=== PATIENT | male | born 1950 | race Caucasian/White ===

== ENCOUNTER 2022-04-19 17:59 | Emergency (ER) | payer OTHER ==
[~2022-04-19] VITALS: Ht 190.5 cm; Wt 122.5 kg
[2022-04-19 18:35] LABS: BASOPHILS ABSOLUTE AUTO 0.08 K/mm3 (0.00-0.23); BASOPHILS PERCENT AUTO 1 % (0-2); EOSINOPHILS ABSOLUTE AUTO 0.33 K/mm3 (0.00-0.68); EOSINOPHILS PERCENT AUTO 4 % (0-6); Hematocrit 43.8 % (37.0-53.0); Hemoglobin 14.9 g/dL (13.5-17.5); IMMATURE GRAN ABSOLUTE AUTO 0.05 K/mm3 (0.00-0.10); IMMATURE GRAN PERCENT AUTO 1 % (0-1); LYMPHOCYTES ABSOLUTE AUTO 1.23 K/mm3 (0.84-5.20); LYMPHOCYTES PERCENT AUTO 15 % (21-46); MONOCYTES ABSOLUTE AUTO 0.67 K/mm3 (0.16-1.47); MONOCYTES PERCENT AUTO 8 % (4-13); Mean Corpuscular HGB 27.5 pg (26.0-34.0); Mean Corpuscular Volume 81 fL (80-100); Mean Platelet Volume 9.2 fL (9.1-12.4); NEUTROPHILS ABSOLUTE AUTO 5.82 K/mm3 (1.96-9.15); NEUTROPHILS PERCENT AUTO 71 % (41-73); Platelet Count 136 K/mm3 (150-400); RDW Coefficient Variation 17.7 % (11.7-14.2); RDW Standard Deviation 51.4 fL (35.1-46.3); Red Blood Cell Count 5.42 M/mm3 (4.30-5.90); White Blood Cell Count 8.18 K/mm3 (4.00-11.30)
[2022-04-19 18:52] LABS: Albumin/Globulin Ratio 1.1 (0.8-1.8); Bilirubin, Total 0.4 mg/dL (0.1-1.0); Bun/Creatinine Ratio 18.7 (12.0-20.0); Calcium, Blood 9.8 mg/dL (8.5-10.1); Creatinine, Blood 2.25 mg/dL (0.60-1.20); Globulin, Blood 3.5 g/dL (2.2-4.0); Potassium, Blood 4.5 mmol/L (3.5-5.5); Total Protein, Blood 7.5 g/dL (6.4-8.2)
[2022-04-19] MEDS ORDERED: Norco 5-325 Ta1 EACH PO (22:13)
== END 2022-04-19 22:26 | disposition home or self-care (01) ==
LOC: ER 17:59
PROVIDERS: Emergency Medicine
DX: R07.9 Chest pain, unspecified (principal); I50.9 Heart failure, unspecified; Z95.0 Presence of cardiac pacemaker; Z88.0 Allergy status to penicillin; Z88.1 Allergy status to other antibiotic agents; Z88.7 Allergy status to serum and vaccine
CPT/HCPCS: 71045; 80053; 83880; 84484; 85025; 93005; 93010; A9270; J2270; J2405

== ENCOUNTER 2023-05-20 21:19 | Emergency (ER) | payer OTHER ==
[~2023-05-20] VITALS: Ht 190.5 cm; Wt 104.3 kg
[~2023-05-20 21:19] MED LIST: Norco 5-325 Ta1 EACH PO
[2023-05-20 21:42] LABS: BASOPHILS ABSOLUTE AUTO 0.08 K/mm3 (0.00-0.23); BASOPHILS PERCENT AUTO 1 % (0-2); EOSINOPHILS ABSOLUTE AUTO 0.27 K/mm3 (0.00-0.68); EOSINOPHILS PERCENT AUTO 3 % (0-6); Hematocrit 37.8 % (37.0-53.0); Hemoglobin 12.4 g/dL (13.5-17.5); IMMATURE GRAN ABSOLUTE AUTO 0.04 K/mm3 (0.00-0.10); IMMATURE GRAN PERCENT AUTO 1 % (0-1); LYMPHOCYTES ABSOLUTE AUTO 1.31 K/mm3 (0.84-5.20); LYMPHOCYTES PERCENT AUTO 17 % (21-46); MONOCYTES PERCENT AUTO 6 % (4-13); Mean Corpuscular HGB 27.9 pg (26.0-34.0); Mean Corpuscular HGB Conc 32.8 g/dL (31.5-36.5); Mean Corpuscular Volume 85 fL (80-100); Mean Platelet Volume 9.9 fL (9.1-12.4); NEUTROPHILS ABSOLUTE AUTO 5.65 K/mm3 (1.96-9.15); NEUTROPHILS PERCENT AUTO 72 % (41-73); Platelet Count 158 K/mm3 (150-400); RDW Coefficient Variation 16.9 % (11.7-14.2); RDW Standard Deviation 51.5 fL (35.1-46.3); Red Blood Cell Count 4.44 M/mm3 (4.30-5.90); White Blood Cell Count 7.85 K/mm3 (4.00-11.30)
[2023-05-20 21:54] LABS: Albumin, Blood 3.7 g/dL (3.4-5.0); Bilirubin, Total 0.7 mg/dL (0.1-1.0); Bun/Creatinine Ratio 19.2 (12.0-20.0); Calcium, Blood 9.5 mg/dL (8.5-10.1); Creatinine, Blood 2.39 mg/dL (0.60-1.20); Globulin, Blood 3.7 g/dL (2.2-4.0); Potassium, Blood 4.4 mmol/L (3.5-5.5); Total Protein, Blood 7.4 g/dL (6.4-8.2)
[2023-05-20 23:38] LABS: Magnesium, Blood 2.3 mg/dL (1.6-2.4); Phosphorus, Blood 2.4 mg/dL (2.5-4.9); Thyroid Stimulating Hormone 7.63 uIU/mL (0.360-4.800)
[2023-05-21 01:00] VITALS: BP 136/96
[2023-05-21] MEDS ORDERED: Percocet 5-3251 EACH PO (01:02)
[2023-05-22] MEDS ORDERED: AMIODARONE HCL200 MG PO (12:00)
[2023-05-22] MEDS ORDERED: METO25ER PO (12:01)
[2023-05-22] MEDS ORDERED: ELIQUIS5 M2 PO (12:01)
[2023-05-22] MEDS ORDERED: TORS10 PO (12:01)
[2023-05-22] MEDS ORDERED: ALLO300 PO (12:01)
[2023-05-22] MEDS ORDERED: GABA300 PO (12:02)
[2023-05-22] MEDS ORDERED: Aspirin325 MG PO (12:02)
[2023-05-22] MEDS ORDERED: FOTIVDA PO (12:02)
[2023-05-22] MEDS ORDERED: AMIT25 PO (12:02)
[2023-05-22] MEDS ORDERED: ATOR20 PO (12:02)
== END 2023-05-21 01:25 | disposition home or self-care (01) ==
LOC: ER 21:19
PROVIDERS: Physician Assistant
DX: R07.9 Chest pain, unspecified (principal); I50.9 Heart failure, unspecified; C64.9 Malignant neoplasm of unspecified kidney, except renal pelvis; Z95.0 Presence of cardiac pacemaker; Z88.0 Allergy status to penicillin; Z88.1 Allergy status to other antibiotic agents; Z88.7 Allergy status to serum and vaccine
CPT/HCPCS: 71046; 80053; 83735; 84100; 84443; 84484; 85025; 93005; 93010; 99285-25; A9270; J3370; J7050

== ENCOUNTER 2023-05-22 09:50 | Emergency (ER) | payer OTHER ==
[~2023-05-22] VITALS: Ht 190.5 cm; Wt 104.3 kg
[~2023-05-22 09:50] MED LIST changes: +Percocet 5-3251 EACH PO
[2023-05-22] MEDS ORDERED: Acetaminophen 500 MG Tab PO ONE (10:15)
[2023-05-22 11:04] LABS: BASOPHILS ABSOLUTE AUTO 0.05 K/mm3 (0.00-0.23); BASOPHILS PERCENT AUTO 1 % (0-2); EOSINOPHILS ABSOLUTE AUTO 0.28 K/mm3 (0.00-0.68); EOSINOPHILS PERCENT AUTO 5 % (0-6); Hematocrit 35.3 % (37.0-53.0); Hemoglobin 11.9 g/dL (13.5-17.5); IMMATURE GRAN ABSOLUTE AUTO 0.03 K/mm3 (0.00-0.10); IMMATURE GRAN PERCENT AUTO 1 % (0-1); LYMPHOCYTES ABSOLUTE AUTO 0.82 K/mm3 (0.84-5.20); LYMPHOCYTES PERCENT AUTO 14 % (21-46); MONOCYTES ABSOLUTE AUTO 0.36 K/mm3 (0.16-1.47); MONOCYTES PERCENT AUTO 6 % (4-13); Mean Corpuscular HGB 28.2 pg (26.0-34.0); Mean Corpuscular HGB Conc 33.7 g/dL (31.5-36.5); Mean Corpuscular Volume 84 fL (80-100); Mean Platelet Volume 10.9 fL (9.1-12.4); NEUTROPHILS ABSOLUTE AUTO 4.15 K/mm3 (1.96-9.15); NEUTROPHILS PERCENT AUTO 73 % (41-73); Platelet Count 121 K/mm3 (150-400); RDW Coefficient Variation 16.7 % (11.7-14.2); RDW Standard Deviation 50.9 fL (35.1-46.3); Red Blood Cell Count 4.22 M/mm3 (4.30-5.90); White Blood Cell Count 5.69 K/mm3 (4.00-11.30)
[2023-05-22 11:14] LABS: Albumin, Blood 3.3 g/dL (3.4-5.0); Albumin/Globulin Ratio 0.9 (0.8-1.8); Bilirubin, Total 0.8 mg/dL (0.1-1.0); Bun/Creatinine Ratio 17.8 (12.0-20.0); Calcium, Blood 9.2 mg/dL (8.5-10.1); Creatinine, Blood 2.19 mg/dL (0.60-1.20); Globulin, Blood 3.5 g/dL (2.2-4.0); Potassium, Blood 4.2 mmol/L (3.5-5.5); Total Protein, Blood 6.8 g/dL (6.4-8.2)
[2023-05-22 11:45] VITALS: BP 107/67
[2023-05-22] MEDS ORDERED: AMIODARONE HCL200 MG PO (12:00)
[2023-05-22] MEDS ORDERED: ALLO300 PO (12:01)
[2023-05-22] MEDS ORDERED: TORS10 PO (12:01)
[2023-05-22] MEDS ORDERED: ELIQUIS5 M2 PO (12:01)
[2023-05-22] MEDS ORDERED: METO25ER PO (12:01)
[2023-05-22] MEDS ORDERED: AMIT25 PO (12:02)
[2023-05-22] MEDS ORDERED: ATOR20 PO (12:02)
[2023-05-22] MEDS ORDERED: FOTIVDA PO (12:02)
[2023-05-22] MEDS ORDERED: GABA300 PO (12:02)
[2023-05-22] MEDS ORDERED: Aspirin325 MG PO (12:02)
== END 2023-05-22 12:05 | disposition home or self-care (01) ==
LOC: ER 09:50
PROVIDERS: Emergency Medicine
DX: S00.03XA Contusion of scalp, initial encounter (principal); N18.9 Chronic kidney disease, unspecified; I50.9 Heart failure, unspecified; Z88.0 Allergy status to penicillin; Z88.1 Allergy status to other antibiotic agents; Z88.7 Allergy status to serum and vaccine; X50.1XXA Overexertion from prolonged static or awkward postures, initial encounter
CPT/HCPCS: 70450; 80053; 85025; 99284-25; A9270

== ENCOUNTER → 2023-05-29 | Outpatient (CLI) | payer OTHER ==
[~2023-05-29] MED LIST changes: +ALLO300 PO; +AMIODARONE HCL200 MG PO; +AMIT25 PO; +ATOR20 PO; +Aspirin325 MG PO; +ELIQUIS5 M2 PO; +FOTIVDA PO; +GABA300 PO; +METO25ER PO; +TORS10 PO
[2023-05-29 08:32] LABS: BASOPHILS ABSOLUTE AUTO 0.07 K/mm3 (0.00-0.23); BASOPHILS PERCENT AUTO 1 % (0-2); EOSINOPHILS ABSOLUTE AUTO 0.36 K/mm3 (0.00-0.68); EOSINOPHILS PERCENT AUTO 4 % (0-6); Hemoglobin 13.1 g/dL (13.5-17.5); IMMATURE GRAN ABSOLUTE AUTO 0.03 K/mm3 (0.00-0.10); IMMATURE GRAN PERCENT AUTO 0 % (0-1); LYMPHOCYTES ABSOLUTE AUTO 1.49 K/mm3 (0.84-5.20); LYMPHOCYTES PERCENT AUTO 18 % (21-46); MONOCYTES ABSOLUTE AUTO 0.56 K/mm3 (0.16-1.47); MONOCYTES PERCENT AUTO 7 % (4-13); Mean Corpuscular HGB Conc 33.6 g/dL (31.5-36.5); Mean Corpuscular Volume 83 fL (80-100); Mean Platelet Volume 10.1 fL (9.1-12.4); NEUTROPHILS ABSOLUTE AUTO 5.62 K/mm3 (1.96-9.15); NEUTROPHILS PERCENT AUTO 69 % (41-73); Platelet Count 167 K/mm3 (150-400); RDW Coefficient Variation 16.8 % (11.7-14.2); RDW Standard Deviation 50.4 fL (35.1-46.3); Red Blood Cell Count 4.68 M/mm3 (4.30-5.90); White Blood Cell Count 8.13 K/mm3 (4.00-11.30)
[2023-05-29 08:43] LABS: Albumin, Blood 3.5 g/dL (3.4-5.0); Albumin/Globulin Ratio 0.9 (0.8-1.8); Bilirubin, Total 0.5 mg/dL (0.1-1.0); Bun/Creatinine Ratio 11.9 (12.0-20.0); Calcium, Blood 9.5 mg/dL (8.5-10.1); Creatinine, Blood 2.7 mg/dL (0.60-1.20); Globulin, Blood 3.8 g/dL (2.2-4.0); Potassium, Blood 4.2 mmol/L (3.5-5.5); Total Protein, Blood 7.3 g/dL (6.4-8.2)
== END ==
LOC: LAB SHORT 08:26 → LAB 08:26
PROVIDERS: Chiropractor
DX: R06.09 Other forms of dyspnea (principal)
CPT/HCPCS: 80053; 83880; 84484; 85025; 85379

== ENCOUNTER 2023-08-17 12:18 | Inpatient (IN) | payer OTHER ==
[~2023-08-17] VITALS: Ht 190.5 cm; Wt 94.6 kg
[2023-08-17 13:24] LABS: BASOPHILS ABSOLUTE AUTO 0.05 K/mm3 (0.00-0.23); BASOPHILS PERCENT AUTO 1 % (0-2); EOSINOPHILS ABSOLUTE AUTO 0.55 K/mm3 (0.00-0.68); EOSINOPHILS PERCENT AUTO 5 % (0-6); Hematocrit 29.8 % (37.0-53.0); Hemoglobin 9.6 g/dL (13.5-17.5); IMMATURE GRAN ABSOLUTE AUTO 0.05 K/mm3 (0.00-0.10); IMMATURE GRAN PERCENT AUTO 1 % (0-1); LYMPHOCYTES ABSOLUTE AUTO 0.63 K/mm3 (0.84-5.20); LYMPHOCYTES PERCENT AUTO 6 % (21-46); MONOCYTES ABSOLUTE AUTO 0.45 K/mm3 (0.16-1.47); MONOCYTES PERCENT AUTO 4 % (4-13); Mean Corpuscular HGB 26.7 pg (26.0-34.0); Mean Corpuscular HGB Conc 32.2 g/dL (31.5-36.5); Mean Corpuscular Volume 83 fL (80-100); Mean Platelet Volume 10.3 fL (9.1-12.4); NEUTROPHILS ABSOLUTE AUTO 8.68 K/mm3 (1.96-9.15); NEUTROPHILS PERCENT AUTO 83 % (41-73); Platelet Count 153 K/mm3 (150-400); RDW Coefficient Variation 17.6 % (11.7-14.2); RDW Standard Deviation 52.7 fL (35.1-46.3); White Blood Cell Count 10.41 K/mm3 (4.00-11.30)
[2023-08-17 13:26] LABS: Albumin, Blood 2.3 g/dL (3.4-5.0); Albumin/Globulin Ratio 0.7 (0.8-1.8); Bilirubin, Total 0.5 mg/dL (0.1-1.0); Bun/Creatinine Ratio 14.9 (12.0-20.0); Calcium, Blood 8.7 mg/dL (8.5-10.1); Creatinine, Blood 2.02 mg/dL (0.60-1.20); Globulin, Blood 3.4 g/dL (2.2-4.0); Potassium, Blood 3.8 mmol/L (3.5-5.5); Total Protein, Blood 5.7 g/dL (6.4-8.2)
[2023-08-17] MEDS ORDERED: [UNRECOGNIZED DRUG - OTHER] PO ×2 (14:19→19:59)
[2023-08-17] MEDS ORDERED: OXYCODONE-ACET1 EAC3 PO (14:19)
[2023-08-17] MEDS ORDERED: TESTOSTERONE60 GM (14:21)
[2023-08-17] MEDS ORDERED: NS 1,000 ML IV SCH ×3 (14:25→16:15)
[2023-08-17] MEDS ORDERED: FentaNYL Citrate 50 MCG/ML 2 ML Injection IV PRN (15:30)
[2023-08-17] MEDS ORDERED: Ondansetron HCl 2 MG / ML 2ML Vial IV ONE (15:30)
[2023-08-17] MEDS ORDERED: CefTRIAXone Sodium 1,000 MG in NS 100 ML IV ONE (16:15)
[2023-08-17] MEDS ORDERED: NS 1,000 ML IV ONE (16:16)
[2023-08-17] MEDS ORDERED: Azithromycin 250 MG Tab PO ONE (16:20)
[2023-08-17] MEDS ORDERED: Ondansetron 4 MG TAB PO PRN (16:35)
[2023-08-17] MEDS ORDERED: Acetaminophen 325 MG TABLET PO PRN (16:35)
[2023-08-17 16:45] LABS: Source, Urine Straight Cath
[2023-08-17 17:01] LABS: Appearance, Urine Clear (Clear); Bilirubin, Urine Neg (Neg); Blood, Urine Neg (Neg); Color, Urine Yellow (P-Yellow); Glucose Qualitative, Urine Neg (Neg); Ketones, Urine Neg (Neg); Leukocyte Esterase, Urine Neg (Neg); Nitrite, Urine Neg (Neg); Protein, Urine 1+ (Neg); Specific Gravity, Urine 1.015 (1.003-1.022); Urobilinogen, Urine NORM (Normal)
--- NOTE | 2023-08-17 18:57 | NUR ---
call to er at 1809, CALL BACK FROM [facility] CALLAHAN IN ER AT 1824 FOR RN TO RN REPORT.
[2023-08-17 19:21] VITALS: BP 110/73
[2023-08-17] MEDS ORDERED: ATOR20 PO (20:00)
[2023-08-17] MEDS ORDERED: Gabapentin 300 MG Cap PO SCH (21:35)
[2023-08-17] MEDS ORDERED: Metoprolol Succinate 50 MG TABCR PO SCH (21:35)
[2023-08-17] MEDS ORDERED: NS 250 ML IV PRN (23:10)
[2023-08-18 04:42] VITALS: BP 103/54
[2023-08-18 05:31] LABS: BASOPHILS ABSOLUTE AUTO 0.03 K/mm3 (0.00-0.23); BASOPHILS PERCENT AUTO 0 % (0-2); EOSINOPHILS ABSOLUTE AUTO 0.37 K/mm3 (0.00-0.68); EOSINOPHILS PERCENT AUTO 5 % (0-6); Hematocrit 26.6 % (37.0-53.0); Hemoglobin 8.6 g/dL (13.5-17.5); IMMATURE GRAN ABSOLUTE AUTO 0.03 K/mm3 (0.00-0.10); IMMATURE GRAN PERCENT AUTO 0 % (0-1); LYMPHOCYTES ABSOLUTE AUTO 0.48 K/mm3 (0.84-5.20); LYMPHOCYTES PERCENT AUTO 6 % (21-46); MONOCYTES ABSOLUTE AUTO 0.37 K/mm3 (0.16-1.47); MONOCYTES PERCENT AUTO 5 % (4-13); Mean Corpuscular HGB 26.8 pg (26.0-34.0); Mean Corpuscular HGB Conc 32.3 g/dL (31.5-36.5); Mean Corpuscular Volume 83 fL (80-100); Mean Platelet Volume 10.2 fL (9.1-12.4); NEUTROPHILS PERCENT AUTO 83 % (41-73); Platelet Count 113 K/mm3 (150-400); RDW Standard Deviation 54.4 fL (35.1-46.3); Red Blood Cell Count 3.21 M/mm3 (4.30-5.90); White Blood Cell Count 7.58 K/mm3 (4.00-11.30)
[2023-08-18 05:53] LABS: Albumin/Globulin Ratio 0.7 (0.8-1.8); Bilirubin, Total 0.6 mg/dL (0.1-1.0); Bun/Creatinine Ratio 15.5 (12.0-20.0); Calcium, Blood 8.4 mg/dL (8.5-10.1); Creatinine, Blood 1.81 mg/dL (0.60-1.20); Magnesium, Blood 1.4 mg/dL (1.6-2.4); Potassium, Blood 3.5 mmol/L (3.5-5.5)
[2023-08-18] MEDS ORDERED: OxyCODONE 5 mg/Acetamin 325 mg TABLET PO PRN (06:00)
--- NOTE | 2023-08-18 07:25 | NUR ---
Shift Summary Pt arrived from the ED with a dx of generalized weakness. He is AOx4 with a painful R hip. He is able to pivot to the BSC with one person assisting, weakness and R hip pain are his limiting factors. He rcved one 5-325 percocet per emar this morning which is part of his home medicaitons. Pt has a pace maker. He was on 2L O2 via NC t/o the night which is his BL, he has a CPAP in the room but did not want to wear the BIOX because the tape irritates his skin. Pt has a port in his R chest which is accessed, it is running NS @ [facility].
[2023-08-18 07:37] VITALS: BP 87/51
[2023-08-18 08:52] VITALS: BP 94/53
[2023-08-18] MEDS ORDERED: Enoxaparin 40 MG/0.4 ML SYR SC SCH (09:00)
[2023-08-18] MEDS ORDERED: Magnesium Sulf 2 GM/Water 50ML 50 ML IV ONE (09:00)
[2023-08-18] MEDS ORDERED: ONDA4ODT MM (11:32)
[2023-08-18] MEDS ORDERED: EUTHYROX50 MCG PO (11:34)
[2023-08-18] MEDS ORDERED: OZEMPIC1 MG/0.72 SC (11:34)
[2023-08-18] MEDS ORDERED: Medihoney Topical 44 ML TOP SCH (12:25)
--- NOTE | 2023-08-18 13:00 | NUR ---
PATIENT NOTED TO HAVE PINK FLAT RASH IN GROIN, AND STAGE 2 PRESSURE ULCER OPEN TO RIGHT BUTTOCK. PICS IN CHART. DR PELAYO NOTIFIED ORDERES RECIEVED FOR WOUND/RASH CARE.
--- NOTE | 2023-08-18 15:41 | NUR ---
Spiritual Care Visit. Pt. is awake in bed and welcomes my visit. Pt. is pleasant but displays evidence of being mildly [place]. Facilitated a life review, and Pt. verbalized his powerful personal redemption story. Matters of shobha and belief are considered at length. Prayed with Pt. After prayer even more life story is shared. Pt. displayed evidence of great shobha and hope in spite of a very troublesome prognosis. Pt. 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
[2023-08-18 15:44] VITALS: BP 96/57
--- NOTE | 2023-08-18 19:31 | NUR ---
SHIFT SUMMARY PATIENT HAS REFUSED TO GET UP IN WRITERS PRESENCE TODAY, HE STATES HE GETS ON COMMODE TO VOID AND REFUSED SEVERAL TIMES TODAY. BLADDER SCAN THIS EVENING REVEALED 1100ML URINE. PATIENT THEN AGREABLE TO GET UP TO COMMODE, HE HAD 100ML OUT. CALL TO DR PELAYO WHO ORDERED STRAIGHT CATH AND MAY INSERT CARNEY IF HE CONTINUES TO HAVE POST VOID RESIDUALS OF GREATER THAN 400. BED IN LOW POSITION, CALL LIGHT IN REACH. BED ALARM ON. PATIENT MEDICATED FOR PAIN AND DRESSING TO BUTTOCK PLACED TODAY AFTER CLEANSING.
[2023-08-18 19:43] VITALS: BP 97/57
[2023-08-18] MEDS ORDERED: Miconazole Nitrate 2% 85 GM PWD TOP SCH (21:00)
[2023-08-19 04:13] VITALS: BP 93/63
[2023-08-19 07:21] VITALS: BP 109/75
[2023-08-19] MEDS ORDERED: HyDROXyzine HCl 25 MG Tab PO PRN (10:10)
--- NOTE | 2023-08-19 15:15 | NUR ---
GOALS OF CARE DISCUSSION Met with Pt, 2 sisters, niece and provider in pt's room. Pt is A/O x3, able to make needs known. Reviewed current health status and pt's desire to continue with chemotherapy. Pt would benefit from H/H nursing for wound care and medication management. Pt reports pain on his right side has grately increased in the last couple of weeks and he thinks the implanted neurostimulator is broken. Pt's hope is to repair the neurostimulator for better pain management. He has an appt in [place] next week. Next week pt is also scheduled to see Dr. Rosas and Dr. Chandra. Family is very supportive of pt's decision to continue receiving treatment for his CA as long as he wishes. They all stated they will be there to support him when the time for hospice comes. Education and review of code status and level of care options provided to pt and family. Pt elects to be a DNR with selective medical interventions. He does not want intubation or feeding tubes. Provider signed POLST, original and photo copy provided to pt. Copy of POLST faxed to [facility] medical records, [place] POLST registry and tubed to [facility] medical records. He has a pacemaker with ICD. Pt plans to contact baker pastry to have pacer/defib deactivated.
[2023-08-19 16:51] VITALS: BP 139/79
--- NOTE | 2023-08-19 19:47 | NUR ---
SHIFT SUMMARY PATIENT AOX4 THIS AM, HE IS AGREABLE TO BED BATH AND IN NO APPARENT DISTRESS. CARNEY IN PLACE FOR RETENTION. HE IS MEDICATED FOR PAIN PER EMAR. OXYGEN LEVELS DURING DAY WERE 91-92% ON 2LPM. PATIENT GOT UP TO TRY AND GET EVALUATED FOR FURTHER OXYGEN NEEDS AND DESATTED TO 77% WITHIN 30 SECONDS OF SITTING ON EDGE OF BED ON ROOM AIR. HOME O2 EVAL ORDERED AND PORTABLE OXYGEN DELIVERED BY [facility] THAT GOES UP TO 4LPM. SONIA INMAN HELPED ASSIST AND ASSESS PATIENT BACK IN BED AND PLACED HIM ON 14LPM VIA BLEED IN ON CPAP TO GET SATURATION UP TO 90%. PATIENT DENIES FEELING SHORT OF BREATH BUT VERY SLEEPY. FAMILY AT BEDSIDE AFTER CPAP REPLACED. DR PELAYO NOTIFIED. ORDERS TO KEEP PATIENT OVERNIGHT AND FOLLOW UP TOMORROW WITH PLAN, AND CONSULT WITH DR KHOURY FOR IMPATIENT VISIT TOMORROW. PATIENT RESTING IN BED AT END OF SHIFT WITH CPAP ON . RN REPORT GIVEN TO SINDY FOLEY.
[2023-08-19 19:49] VITALS: BP 89/55
[2023-08-19 20:04] VITALS: BP 101/61
[2023-08-20 03:20] VITALS: BP 116/76
--- NOTE | 2023-08-20 04:45 | NUR ---
SHIFT SUMMARY PT A&OX4. SOMNOLENT AND APATHETIC WITH CARE AT START OF SHIFT. PT DENIED FEELING SOB WHEN ASKED. HOWEVER PT REMOVED CPAP DURING THE NIGHT TO REPORT ITCHING BACK AND STATE WHERE HE WOULD LIKE THE LOTION APPLIED. DURING THIS TIME, HIS O2 SATS STEADILY DROPPED TO THE 70s BEFORE THE CPAP WAS BACK IN PLACE. O2 SATS QUICKLY CLIMED BACK INTO THE 90'S. PT MEDICATED FOR RIGHT HIP PAIN AND PILLOW PLACED UNDER RIGHT KNEE FOR COMFORT. LOTION APPLIED TO BACK FOR C/O ITCHY SKIN WITH GOOD EFFECT. VSS BUT BP WAS SOFT DURING THE NIGHT. BED IN LOWEST POSITION AND CALL LIGHT IN REACH.
[2023-08-20 07:34] VITALS: BP 102/67
[2023-08-20 08:23] LABS: BASOPHILS ABSOLUTE AUTO 0.03 K/mm3 (0.00-0.23); BASOPHILS PERCENT AUTO 1 % (0-2); EOSINOPHILS ABSOLUTE AUTO 0.44 K/mm3 (0.00-0.68); EOSINOPHILS PERCENT AUTO 9 % (0-6); Hematocrit 24.8 % (37.0-53.0); Hemoglobin 8.1 g/dL (13.5-17.5); IMMATURE GRAN ABSOLUTE AUTO 0.02 K/mm3 (0.00-0.10); IMMATURE GRAN PERCENT AUTO 0 % (0-1); LYMPHOCYTES ABSOLUTE AUTO 0.48 K/mm3 (0.84-5.20); LYMPHOCYTES PERCENT AUTO 9 % (21-46); MONOCYTES ABSOLUTE AUTO 0.31 K/mm3 (0.16-1.47); MONOCYTES PERCENT AUTO 6 % (4-13); Mean Corpuscular HGB 27.4 pg (26.0-34.0); Mean Corpuscular HGB Conc 32.7 g/dL (31.5-36.5); Mean Corpuscular Volume 84 fL (80-100); Mean Platelet Volume 9.7 fL (9.1-12.4); NEUTROPHILS ABSOLUTE AUTO 3.92 K/mm3 (1.96-9.15); NEUTROPHILS PERCENT AUTO 75 % (41-73); Platelet Count 96 K/mm3 (150-400); RDW Coefficient Variation 17.5 % (11.7-14.2); RDW Standard Deviation 53.7 fL (35.1-46.3); Red Blood Cell Count 2.96 M/mm3 (4.30-5.90)
[2023-08-20 08:40] LABS: Albumin, Blood 1.9 g/dL (3.4-5.0); Albumin/Globulin Ratio 0.6 (0.8-1.8); Bilirubin, Total 0.4 mg/dL (0.1-1.0); Bun/Creatinine Ratio 15.3 (12.0-20.0); Calcium, Blood 8.9 mg/dL (8.5-10.1); Creatinine, Blood 1.5 mg/dL (0.60-1.20); Potassium, Blood 3.8 mmol/L (3.5-5.5); Total Protein, Blood 4.9 g/dL (6.4-8.2)
[2023-08-20] MEDS ORDERED: Apixaban 5 MG Tab PO SCH (09:00)
[2023-08-20] MEDS ORDERED: Amiodarone HCl 200 MG Tab PO SCH (09:00)
[2023-08-20] MEDS ORDERED: HyDROXyzine HCl 10 MG Tab PO SCH (10:20)
[2023-08-20] MEDS ORDERED: NS 1,000 ML IV SCH (11:15)
[2023-08-20] MEDS ORDERED: Atarax10 MG PO (15:08)
--- NOTE | 2023-08-20 16:36 | NUR ---
PT DISCHARGED HOME ON HOSPICE AT 1500. PT HAD FAMILY AT BEDSIDE. AOX34 AND ABLE TO MAKE ALL NEEDS KNOWN. PT HAD AMBULANCE TO TRANSPORT HOME. PT WAS SATING LOW 90s ON 2L. ALL PERSONAL BELONINGS COLLECTED AND TAKEN HOME BY FAMILY.
[2023-08-21] MEDS ORDERED: HyDROXyzine HCl 10 MG Tab PO SCH (09:00)
== END 2023-08-20 15:27 | disposition hospice, home (50) | DRG 686 ==
LOC: ER 12:18 → MEDS 12:19 → ENPENDDIS 08-19 18:34 → MEDS 08-20 12:46
PROVIDERS: Emergency Medicine; Physician Assistant; ADMIT Internal Medicine
DX: C64.1 Malignant neoplasm of right kidney, except renal pelvis (principal); J96.01 Acute respiratory failure with hypoxia; C78.01 Secondary malignant neoplasm of right lung; C64.2 Malignant neoplasm of left kidney, except renal pelvis; D63.1 Anemia in chronic kidney disease; I48.91 Unspecified atrial fibrillation; E88.09 Other disorders of plasma-protein metabolism, not elsewhere classified; Z99.81 Dependence on supplemental oxygen; M51.36 Other intervertebral disc degeneration, lumbar region; N18.32 Chronic kidney disease, stage 3b; E11.22 Type 2 diabetes mellitus with diabetic chronic kidney disease; M10.9 Gout, unspecified; Z51.5 Encounter for palliative care; I12.9 Hypertensive chronic kidney disease with stage 1 through stage 4 chronic kidney disease, or unspecified chronic kidney disease; E78.5 Hyperlipidemia, unspecified; G89.29 Other chronic pain; L89.109 Pressure ulcer of unspecified part of back, unspecified stage; E11.622 Type 2 diabetes mellitus with other skin ulcer; Z96.82 Presence of neurostimulator; E11.42 Type 2 diabetes mellitus with diabetic polyneuropathy; Z86.718 Personal history of other venous thrombosis and embolism; Z98.890 Other specified postprocedural states; Z87.891 Personal history of nicotine dependence; Z88.0 Allergy status to penicillin; Z88.1 Allergy status to other antibiotic agents; Z88.7 Allergy status to serum and vaccine; Z79.01 Long term (current) use of anticoagulants; Z79.899 Other long term (current) drug therapy; Z79.890 Hormone replacement therapy; Z79.891 Long term (current) use of opiate analgesic; Z90.49 Acquired absence of other specified parts of digestive tract
CPT/HCPCS: 36415; 51701; 71045; 72100; 73502; 80053; 83605; 83735; 83880; 84145; 85025; 93005; 93010; 94660; 94760; 96361-59; 96365-59; 96375-59; 97162; 99285-25; A9270; J0696; J1642; J2405; J3010; J3475; J7030; J7050